=== PATIENT | female | born 1985 | race Caucasian/White ===

== ENCOUNTER 2017-06-28 11:09 | Emergency (ER) | payer OTHER ==
[~2017-06-28] VITALS: Ht 180.3 cm; Wt 174.6 kg
[~2017-06-28 11:09] MED LIST: ALBU8HFA4 INH; ATOR80TA PO; HUMULIN R SQ; METFORMIN ER PO; NORE-83 PO; VALS40TA4 PO
[2017-06-28] MEDS ORDERED: NPH,100V SQ (11:31)
--- NOTE | 2017-06-28 11:42 | NUR ---
mse completed, aci/rx x2 given. pt ambuklated w/o diff/took all belongings.
[2017-06-28 11:44] VITALS: BP 115/90
== END 2017-06-28 11:45 | disposition home or self-care (01) ==
LOC: ER 11:09
DX: J20.9 Acute bronchitis, unspecified (principal); E78.5 Hyperlipidemia, unspecified; J45.909 Unspecified asthma, uncomplicated; E11.9 Type 2 diabetes mellitus without complications; Z79.84 Long term (current) use of oral hypoglycemic drugs
CPT/HCPCS: A4663